=== PATIENT | male | born 1960 | race Caucasian/White ===

== ENCOUNTER 2022-01-06 09:03 | Observation (INO) | payer OTHER ==
[~2022-01-06] VITALS: Ht 188 cm; Wt 163.9 kg
[2022-01-06 09:58] LABS: ABSOLUTE NEUTROPHILS 6.1 thou/uL (1.4-8.2); BASOPHILS 1.7 % (0.0-2.0); EOSINOPHILS 1.4 % (0.0-3.0); HEMATOCRIT 39.3 % (42.0-52.0); HEMOGLOBIN 13.4 gm/dL (14.0-18.0); MCH 28.8 pg (26.0-34.0); MCV 84.8 fL (80.0-100.0); MONOCYTES 9.1 % (1.0-8.0); PLATELET COUNT 310 thou/uL (150-400); POLYS 65.8 % (36.0-66.0); RBC 4.63 mil/uL (4.50-6.00); RDW 14.4 % (10.5-14.5); WBC 9.2 thou/uL (4.0-11.0)
[2022-01-06 10:10] LABS: CALCIUM 9.1 mg/dL (8.5-10.1); CREATININE 1.1 mg/dL (0.7-1.3); POTASSIUM 4.8 mmol/L (3.5-5.1)
[2022-01-06 10:12] VITALS: BP 114/58
[2022-01-06 10:13] LABS: APTT 29.6 Seconds (24.5-32.8); PROTIME 10.9 Seconds (10.5-12.1)
[2022-01-06 10:17] LABS: ALBUMIN 3.5 g/dL (3.4-5.0); TOTAL BILIRUBIN 0.3 mg/dL (0.2-1.0); TOTAL PROTEIN 7.5 g/dL (6.4-8.2)
[2022-01-06] MEDS ORDERED: ASA81BEC PO (10:22)
[2022-01-06] MEDS ORDERED: ZESTRIL10 MG PO (10:22)
[2022-01-06] MEDS ORDERED: TOPROL XL100 MG PO (10:23)
[2022-01-06] MEDS ORDERED: XARELTO20 MG PO (10:23)
[2022-01-06] MEDS ORDERED: CARDIZEM CD 18180 M3 PO (10:24)
[2022-01-06] MEDS ORDERED: CRESTOR20 MG PO (10:24)
[2022-01-06] MEDS ORDERED: LASIX 40 MG TAB40 MG PO (10:26)
[2022-01-06] MEDS ORDERED: KLOR-CON M2020 MEQ PO (10:26)
[2022-01-06] MEDS ORDERED: NITROSTAT0.4 M1 SUBLING (10:27)
[2022-01-06 17:00] VITALS: BP 144/86
--- NOTE | 2022-01-06 18:21 | NUR ---
REPORT RECEIVED FROM [employer]ATOR. PATIENT ARRIVED ON THE FLOOR AT APPROXIMATELY 1700. PATIENT STILL GROGGY FROM THE ANESTISIA, ANSWERING QUESTIONS APPROPRIATELY. SPOUSE ALSO AT BEDSIDE. PATIENT HAS A RIGHT GROIN SITE THAT IS C/D/I. DENIES PAIN OR ANY OTHER COMPLAINTS. HEART MONITOR APPLIED AND VITALS TAKEN.
[2022-01-06 19:33] VITALS: BP 137/71
[2022-01-07 04:11] VITALS: BP 122/46
--- NOTE | 2022-01-07 06:50 | NUR ---
PATIENT AAOX4. NO SWELLING OR HEMATOMA FORMATION TO R GROIN SITE. HE WAS ABLE TO AMBULATE WITH NO ISSUES. STATES THAT HE FEELS GREAT. WILL CONTINUE TO MONITOR.
[2022-01-07] MEDS ORDERED: LISINOPRIL20 MG PO (07:53)
[2022-01-07] MEDS ORDERED: MULTAQ 400 MG400 MG PO (07:53)
[2022-01-07 10:51] VITALS: BP 122/46
--- NOTE | 2022-01-07 12:57 | NUR ---
PATIENT ADMITTED FOR AFIB ABLATION. CHART REVIEWED AND DISCUSSED WITH CARE TEAM. CM MET WITH PT THIS DAY. CM ROLE INTRODUCED. CM DISCUSSED XERALTO WITH PT. 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 HE REPORTS NO CONCERNS WITH COPAYS. CM GAVE PT XERALTO COUPONG SHOULD HE NEED IT IN THE FUTURE. PT REPORTS NO CONCERNS AND READY TO DC WITH NO NEEDS.
[2022-01-07 13:07] VITALS: BP 122/46
--- NOTE | 2022-01-07 13:21 | NUR ---
ASSUMED PT CARE THIS MORNING. PT A&OX4 AND COMMUNICATING NEEDS TO STAFF APPROPRIATELY. PT AMBULATES INDEPENDENTLY AND SHOWERED WITHOUT ASSISTANCE. VOIDING WITHOUT ANY ISSUES. PT DENIED PAIN THROUGHOUT THE SHIFT. HAD A GOOD APPETITE, CONSUMED 100 OF MEALS PLUS SNACKS BROUGHT BY FAMILY. DC INSTRUCTIONS WERE REVIEWED WITH THE PT AND FAMILY. QUESTIONS INVITED AND ADDRESSED. PT WAS PROVIDED WITH HEART HEALTHY DIETARY AND STROKE PREVENTION EDUCATION. IV AND TELE MONITORING WAS DISCONTINUED. PT WAS SENT HOME WITH THEIR BELONGINGS TO THE CARE OF FAMILY.
[2022-01-07 13:23] VITALS: BP 122/46
--- NOTE | 2022-01-09 13:01 | P ---
[facility] [place] [place] [address] PROCEDURE REPORT Name: JOMAR CHARLTON Room #: 203-P [facility]..#: [id number] Admission: 01/06/22 Attend Phys: Hua Zaldivar MD Discharge: 01/07/22 Date of : 64 Report #: [id number] THIS REPORT FOR: cc: Kishan Finley Jeffrey W. DO Couchonnal,Hua Gore MD ~ DATE OF SERVICE: 01/06/2022 PREOPERATIVE DIAGNOSIS: Atrial fibrillation/atrial flutter. POSTOPERATIVE DIAGNOSIS: Atrial fibrillation/atrial flutter. PROCEDURES PERFORMED: 1. Atrial fibrillation ablation, CPT code 34990. 2. Program stimulation pacing after IV drug infusion, CPT code 44180. 3. 3D mapping, CPT code 57909. 4. Intracardiac echo, CPT code 16224. 5. Focal ablation, CPT code 07060. 6. Second pathway ablation, CPT code 93862. INDICATIONS: The patient is a 61-year-old with a history of atrial fibrillation, atrial flutter, who has failed prior attempts at cardioversion, here for ablation. ANESTHESIA: The patient underwent general anesthesia with no anesthesia related complications. DESCRIPTION OF PROCEDURE: The patient was brought to the EP laboratory in a fasting and nonsedated state and was noted to be in AFib/atrial flutter. I then obtained access to the right femoral vein x 3, placing an 8, 9 and 7-Burmese short sheath using the modified Seldinger technique. Under fluoroscopy, a Decapolar Catheter was placed in the coronary sinus and an ICE catheter was placed in the right atrium for intracardiac ultrasound imaging. The patient was then systemically heparinized. Transseptal was performed using an SL1 sheath and a [place] needle. Of note, he did have a very thick interatrial septum with interatrial septal hypertrophy, but I was able to cross the septum without any issues. I then exchanged the SL1 sheath for the cryosheath and placed the Lasso catheter in the left atrium. Next, a 3D geometry of the left atrium was created using the Lasso catheter and then we started by performing an AFib ablation. Atrial fibrillation ablation: Next, I started by isolating the pulmonary veins using the cryoballoon. The left superior pulmonary vein underwent two 4-minute freezes and did not appear to isolate. I then decided to isolate the left inferior pulmonary vein. I performed a 200-second freeze which resulted in slowing of the vein, but not isolation. I performed a second lower freeze in the left inferior pulmonary vein, which resulted in isolation in [address] [address] PROCEDURE REPORT Name: JOMAR CHARLTON Room #: 203-P [facility] [place]#: [id number] Admission: 01/06/22 Attend Phys: Hua Zaldivar MD Discharge: 01/07/22 Date of : 64 Report #: [id number] this final freeze was of 4 minutes' duration. I then interrogated the left superior pulmonary vein and this now appeared to be isolated. I then went to the right-sided veins and the right superior pulmonary vein underwent a second freeze resulting in isolation at 55 seconds, but due to cold temps I came off. I performed an additional 3-minute freeze. The right inferior pulmonary vein underwent a 140-second freeze and isolated at 48 seconds, and again, I came off early due to cold temps. I then performed an additional 155-second freeze. There was never any phrenic nerve compromise. Posterior wall isolation: Next, a focal posterior wall isolation was performed. I performed a total of 8 freezes along the posterior wall, each of 3 minutes duration. A repeat voltage map was created, which showed that the pulmonary veins were isolated and that the posterior left atrium was also isolated. The patient underwent a 200 joule synchronized cardioversion with christian of sinus rhythm. Then, an EP study was performed. Of note, the patient did have evidence of some sick sinus syndrome. When I came off pacing, he did have 2-3 second conversion pauses. With atrial burst pacing, AV block was noted at 500 milliseconds, atrial ERP was noted at 370 milliseconds at a [address] cycle length. With atrial burst pacing down to 280 milliseconds, the patient went into an atrial flutter, proximal distal activation along the CS and a cycle length of 290 milliseconds consistent with cavotricuspid isthmus dependent flutter. As such, the patient was prepped for atrial flutter ablation. Ablation was performed using an 8 mm catheter via a ramp sheath. Post-ablation, there was evidence of bidirectional block. Post-ablation transisthmus conduction time was 176 milliseconds. A followup EP study was performed with isoproterenol infusion at 2 mcg per minute. AV block was noted at 430 milliseconds and atrial ERP was noted at 200 milliseconds at a [address] cycle length. As such, no other arrhythmias were inducible and the procedure was concluded. The patient had no evidence of pericardial effusion, received systemic protamine, and once the ACT was within acceptable range, catheters and sheaths were pulled and hemostasis was obtained. CONCLUSION: 1. Successful AFib ablation with isolation of the pulmonary veins. 2. Successful focal ablation with isolation of the posterior wall. 3. Successful ablation of right-sided atrial flutter with evidence of bidirectional block. <ELECTRONICALLY SIGNED> By: Hua Zaldivar MD 01/09/22 1301 [id number] Hua Zaldivar MD /nt
== END 2022-01-07 13:36 | disposition home or self-care (01) ==
LOC: CATH 09:03 → 2N 09:41 → CATH 10:55 → 2N 01-07 13:36
PROVIDERS: ADMIT Internal Medicine Cardiovascular Disease; ATTEND Internal Medicine Cardiovascular Disease
DX: I48.91 Unspecified atrial fibrillation (principal); I25.10 Atherosclerotic heart disease of native coronary artery without angina pectoris; Z20.822 Contact with and (suspected) exposure to COVID-19; I73.9 Peripheral vascular disease, unspecified; E78.5 Hyperlipidemia, unspecified; I11.0 Hypertensive heart disease with heart failure; I50.30 Unspecified diastolic (congestive) heart failure; E66.9 Obesity, unspecified; Z68.42 Body mass index [BMI] 45.0-49.9, adult; Z88.0 Allergy status to penicillin
CPT/HCPCS: 62110; 62900; 65020; 65040; 70005